=== PATIENT | male | born 1965 | race Caucasian/White ===

== ENCOUNTER 2016-04-10 20:53 | Emergency (ER) | payer BC ==
[~2016-04-10] VITALS: Ht 167.6 cm; Wt 64.0 kg
[~2016-04-10 20:53] MED LIST: ALPR1 PO; LORTA10 PO; XANA2TAB2 PO
[2016-04-10 20:56] VITALS: BP 149/88; PULSE 83; RESP 18; TEMP 97.8; O2SAT 99
[2016-04-10 21:06] VITALS: BP 168/89; PULSE 91; RESP 20; O2SAT 94
[2016-04-10] MEDS ORDERED: LORazepam 2 MG/ML VIAL ONE (21:06)
[2016-04-10] MEDS ORDERED: DIAZ10 PO (21:15)
[2016-04-10] MEDS ORDERED: FENT75DI T-DERMAL (21:15)
[2016-04-10] MEDS ORDERED: SODIUM CHLOR 0.9% 1000 ML INJ 1,000 ML IV ONE (21:15)
[2016-04-10] MEDS ORDERED: HYDR-3535 PO (21:15)
--- NOTE | 2016-04-10 21:27 | PD ---
HPI Chief Complaint: Chronic pain Time Seen by Provider: 21:11 Travel History International Travel<30 days: No Contact w/Intl Traveler<30days: No Traveled to known affect area: No History of Present Illness HPI 50yo M with PMH of chronic back pain presents to the ED with c/o not able to get his pain medication. Pt takes fentanyl patch, lortab and valium for his chronic back pain. Pt gets the medications from his pain management physician Dr. Maher and states they went to him today and received a prescription refill of all his pain medications. Pt states he accidentally threw away all his pain medications 3 days ago and [facility] would not fill them. Pt is shaking his right arm but easily arousable and has no post ictal state. Pt becomes alert when we discuss his pain medications between his episodes of shaking extremities and answers questions. Denies any fever, chest pain, sob, n/v, abdominal pain, weakness or numbness. Pt was on the bed when this happened and denies any fall or trauma. PFSH Past Medical History Arthritis: Yes Autoimmune Disease: No Blood Disorders: No Anxiety: Yes Depression: Yes Cardiovascular Problems: No Endocrine: No GERD: Yes Genitourinary: No Immune Disorder: No Musculoskeletal: Yes (CHRONIC BACK PAIN) Neurologic: No Psychiatric: Yes Respiratory: No Immunizations Current: Yes Tetanus Vaccination: Unknown Influenza Vaccination: No Past Surgical History Appendectomy: Yes Body Medical Devices: BACK SURGERIES WITH CAGE Other Surgery: Yes (BACK SURGERY 1997, APPENDIX 1983) Social History Alcohol Use: Yes Tobacco Use: Yes Substance Use: No Allergies-Medications (Allergen,Severity, Reaction): Coded Allergies: No Known Allergies (Verified , 04/10/16) Reported Meds & Prescriptions Reported Meds & Active Scripts Active Reported Fentanyl Patch 72 HR (Fentanyl) 75 Mcg/Hr Patch 75 Mcg T-DERMAL Q72H Remove old patch when new one placed. Valium (Diazepam) 10 Mg Tab 10 Mg PO TID PRN Lortab (Hydrocodone-Acetaminophen) 10-325 Mg Tab 1 Tab PO Q4H PRN Review of Systems Except as stated in HPI: all other systems reviewed are Neg Physical Exam Narrative GENERAL: 50yo M not in distress. SKIN: Warm and dry. HEAD: Atraumatic. Normocephalic. EYES: Pupils equal and round. No scleral icterus. No injection or drainage. ENT: No nasal bleeding or discharge. Mucous membranes pink and moist. NECK: Trachea midline. No JVD. CARDIOVASCULAR: Regular rate and rhythm. No murmur appreciated. RESPIRATORY: No accessory muscle use. Clear to auscultation. Breath sounds equal bilaterally. GASTROINTESTINAL: Abdomen soft, non-tender, nondistended. No rebound tenderness or guarding. MUSCULOSKELETAL: No obvious deformities. No clubbing. No cyanosis. No edema. NEUROLOGICAL: Awake and alert. No obvious cranial nerve deficits. Motor grossly within normal limits. Normal speech. PSYCHIATRIC: Appropriate mood and affect; insight and judgment normal. Data Data Last Documented VS Vital Signs Date Time Temp Pulse Resp B/P Pulse Ox O2 Delivery O2 Flow Rate FiO2 04/10/16 21:08 91 20 98 Room Air 04/10/16 21:06 168/89 04/10/16 20:56 97.8 Orders Lorazepam Inj (Ativan Inj) (04/10/16 21:06) Complete Blood Count With Diff (04/10/16 21:14) Basic Metabolic Panel (Bmp) (04/10/16 21:14) Lactic Acid (04/10/16 21:14) Sodium Chlor 0.9% 1000 Ml Inj (Ns 1000 M (04/10/16 21:15) Lactic Acid (04/10/16 22:20) Potassium Chloride (Kcl) (04/10/16 22:30) Potassium Chlor 10 Meq Premix (Kcl 10 Me (04/10/16 22:30) Magnesium (Mg) (04/10/16 21:25) Electrocardiogram (04/10/16 ) Labs Laboratory Tests Test 04/10/16 04/10/16 21:25 23:20 White Blood Count 8.1 TH/MM3 Red Blood Count 4.19 MIL/MM3 Hemoglobin 14.6 GM/DL Hematocrit 42.1 % Mean Corpuscular Volume 100.4 FL Mean Corpuscular Hemoglobin 34.7 PG Mean Corpuscular Hemoglobin 34.6 % Concent Red Cell Distribution Width 13.7 % Platelet Count 263 TH/MM3 Mean Platelet Volume 8.3 FL Neutrophils (%) (Auto) 68.9 % Lymphocytes (%) (Auto) 23.8 % Monocytes (%) (Auto) 5.7 % Eosinophils (%) (Auto) 0.7 % Basophils (%) (Auto) 0.9 % Neutrophils # (Auto) 5.6 TH/MM3 Lymphocytes # (Auto) 1.9 TH/MM3 Monocytes # (Auto) 0.5 TH/MM3 Eosinophils # (Auto) 0.1 TH/MM3 Basophils # (Auto) 0.1 TH/MM3 CBC Comment AUTO DIFF Differential Comment AUTO DIFF CONFIRMED Platelet Estimate NORMAL Platelet Morphology Comment NORMAL Red Cell Morphology Comment NORMAL Lactic Acid Level 3.7 mmol/L 2.8 mmol/L Sodium Level 142 MEQ/L Potassium Level 2.9 MEQ/L Chloride Level 108 MEQ/L Carbon Dioxide Level 22.0 MEQ/L Anion Gap 12 MEQ/L Blood Urea Nitrogen 6 MG/DL Creatinine 0.66 MG/DL Estimat Glomerular Filtration 127 ML/MIN Rate Random Glucose 123 MG/DL Calcium Level 8.4 MG/DL Magnesium Level 2.5 MG/DL [facility] Medical Decision Making Medical Screen Exam Complete: Yes Emergency Medical Condition: Yes Interpretation(s) EKG: NSR 78bpm. Normal axis. Poor baseline. Differential Diagnosis pseudoseizure vs. malingering vs. electrolyte abnormalities Narrative Course 50yo M with chronic back pain on multiple pain medication. Pt states that he accidentally threw away his pain medications and pharmacy wont fill his new prescriptions. Pt has shaking episodes that resolved when we discuss his medications and there is not a post ictal state. During the shaking episode of his right arm, his VS remain normal and he was aware of what was going on. Also lifted right arm over his face and it did not drop on his face but whether to his side. Labs reviewed, no leukocytosis. Hypokalemia at 2.9. Magnesium normal at 2.5. Pt given 60mEq KCl and 10mEq KCl IV. Lactic acid is mildly elevated at 3.7, repeat is down to 2.8. Given pt's clinical presentation, I do not feel that he had an actual seizure. Pt was aware of what was happening the entire time. Pt has not had any more episode of shaking after his initial presentation and now wants to go home. He states he will call his pain management physician to see if they can talk to his pharmacy to give him pain medication earlier. is with him. Diagnosis Primary Impression: Hypokalemia Patient Instructions: General Instructions Departure Forms: Tests/Procedures Additional Instructions: Please follow up with your pain management physician regarding your medication refill. Please follow up with your PMD in 1-2 days. Return to the ED if symptoms worsen. Med/Other Pt SpecificInfo: No Change to Meds Disposition: 01 DISCHARGE HOME Condition: Stable Vesna Leonard DO Apr 10, 2016 21:26
[2016-04-10 21:45] LABS: AUTOMATED NEUTROPHIL # 5.6 TH/MM3 (1.8-7.7); BASOPHIL # 0.1 TH/MM3 (0-0.2); BASOPHIL % 0.9 % (0.0-2.0); EOSINOPHIL # 0.1 TH/MM3 (0-0.4); EOSINOPHIL % 0.7 % (0.0-4.0); HEMATOCRIT 42.1 % (39.0-51.0); LYMPH % 23.8 % (9.0-44.0); LYMPHOCYTE # 1.9 TH/MM3 (1.0-4.8); MEAN CELL VOLUME 100.4 FL (80.0-100.0); MEAN CORPUSCULAR HEMOGLOBIN 34.7 PG (27.0-34.0); MEAN CORPUSCULAR HGB CONC 34.6 % (32.0-36.0); MONO % 5.7 % (0.0-8.0); NEUT % 68.9 % (16.0-70.0); PLATELET COUNT 263 TH/MM3 (150-450); RED BLOOD COUNT 4.19 MIL/MM3 (4.50-5.90); RED CELL DISTRIBUTION WIDTH 13.7 % (11.6-17.2); WHITE BLOOD COUNT 8.1 TH/MM3 (4.0-11.0)
[2016-04-10 21:48] LABS: HEMO FLAGS AUTO DIFF
[2016-04-10 22:20] LABS: PLATELET ESTIMATE SMEAR NORMAL (NORMAL); PLATELET MORPHOLOGY NORMAL (NORMAL); POTASSIUM 2.9 MEQ/L (3.5-5.1); SCAN/DIFF AUTO DIFF CONFIRMED
[2016-04-10] MEDS ORDERED: POTASSIUM CHLOR 10 MEQ PREMIX 100 ML IV ONE (22:30)
[2016-04-10] MEDS ORDERED: POTASSIUM CHLORIDE 20 MEQ CONTROLLED RELEASE TAB PO ONE (22:30)
[2016-04-11 00:14] LABS: MAGNESIUM 2.5 MG/DL (1.5-2.5)
--- NOTE | 2016-04-11 22:57 | EKG ---
Date Performed: 04/10/2016 Time Performed: 21:10:28 PTAGE: 50 years EKG: Sinus rhythm MODERATE ST DEPRESSION ABNORMAL ECG NO PREVIOUS TRACING DOCTOR: Shell Reyes Interpretating Date/Time 04/11/2016 22:54:26
== END 2016-04-11 03:00 | disposition home or self-care (01) ==
LOC: NEPA 20:53
DX: E87.6 Hypokalemia (principal); K21.9 Gastro-esophageal reflux disease without esophagitis; M54.9 Dorsalgia, unspecified; G89.29 Other chronic pain; R94.31 Abnormal electrocardiogram [ECG] [EKG]; Z72.0 Tobacco use
CPT/HCPCS: 80048; 83605; 83735; 85025; 93005; 96361; 96365; 99283; J2060; J3480; J7030

== ENCOUNTER 2017-02-06 23:16 | Emergency (ER) | payer BC, OTHER ==
[~2017-02-06] VITALS: Ht 182.9 cm; Wt 65.0 kg
[~2017-02-06 23:16] MED LIST changes: -ALPR1 PO; +DIAZ10 PO; +FENT75DI T-DERMAL; +HYDR-3535 PO; -LORTA10 PO; -XANA2TAB2 PO
[2017-02-06 23:29] VITALS: BP 163/85; PULSE 60; RESP 18; TEMP 98.8; O2SAT 100
[2017-02-06] MEDS ORDERED: HYDR-3366 PO (23:38)
[2017-02-06 23:57] LABS: AUTOMATED NEUTROPHIL # 3.5 TH/MM3 (1.8-7.7); BASOPHIL % 0.4 % (0.0-2.0); EOSINOPHIL # 0.1 TH/MM3 (0-0.4); EOSINOPHIL % 1.1 % (0.0-4.0); HEMATOCRIT 36.1 % (39.0-51.0); HEMO FLAGS DIFF FINAL; LYMPH % 34.2 % (9.0-44.0); LYMPHOCYTE # 2.1 TH/MM3 (1.0-4.8); MEAN CELL VOLUME 100.6 FL (80.0-100.0); MEAN CORPUSCULAR HEMOGLOBIN 34.5 PG (27.0-34.0); MEAN CORPUSCULAR HGB CONC 34.3 % (32.0-36.0); NEUT % 57.3 % (16.0-70.0); PLATELET COUNT 180 TH/MM3 (150-450); RED BLOOD COUNT 3.59 MIL/MM3 (4.50-5.90); WHITE BLOOD COUNT 6.1 TH/MM3 (4.0-11.0)
[2017-02-07 00:16] LABS: ACETAMINOPHEN 4.1 MCG/ML (10.0-30.0); CALCIUM-PROTEIN CORRECTED 7.6 MG/DL (8.5-10.1); POTASSIUM 3.2 MEQ/L (3.5-5.1); TOTAL BILIRUBIN ADULT 0.2 MG/DL (0.2-1.0)
--- NOTE | 2017-02-07 01:14 | PD ---
HPI Chief Complaint: OD/ Ingestion Time Seen by Provider: 23:24 Travel History International Travel<30 days: No Contact w/Intl Traveler<30days: No Traveled to known affect area: No History of Present Illness HPI Patient is a 51-year-old male presents emergency Department on Silva act, the patient states she has a history of chronic back pain and had run out of his pain medicines so he took a handful of sleeping pills tonight to help him sleep. Apparently to benzodiazepines. The patient states that his found out about this and called 911 and police Shira acted and transferred to the hospital. His only complaint now is of low back pain which he states is chronic. He states he usually takes Percocet and has been out of them and went to the pharmacy for refill but was told by the pharmacist stated was too early. Patient denies any other ingestions. According to the Silva act the patient made several suicidal threats to as well as police. He does not endorse list. Denies any chest pain shortness of breath abdominal pain nausea vomiting diarrhea. Denies any history of suicidal attempts or depression. PFSH Past Medical History Arthritis: Yes Autoimmune Disease: No Blood Disorders: No Anxiety: Yes Depression: Yes Cardiovascular Problems: No Endocrine: No GERD: Yes Genitourinary: No Immune Disorder: No Musculoskeletal: Yes (CHRONIC BACK PAIN) Neurologic: No Psychiatric: Yes Respiratory: No Immunizations Current: Yes Tetanus Vaccination: < 5 Years Influenza Vaccination: Yes Past Surgical History Appendectomy: Yes Body Medical Devices: BACK SURGERIES WITH CAGE Other Surgery: Yes (BACK SURGERY 1997, APPENDIX 1983) Social History Alcohol Use: Yes Tobacco Use: Yes Substance Use: No Allergies-Medications (Allergen,Severity, Reaction): Coded Allergies: No Known Allergies (Verified Allergy, Unknown, 02/07/17) Reported Meds & Prescriptions Reported Meds & Active Scripts Active Reported [place] (Hydrocodone-Acetaminophen) 10-325 Mg Tab 1 Tab PO Q6H PRN Fentanyl Patch 72 HR (Fentanyl) 75 Mcg/Hr Patch 75 Mcg T-DERMAL Q72H Remove old patch when new one placed. Valium (Diazepam) 10 Mg Tab 10 Mg PO TID PRN Review of Systems Except as stated in HPI: all other systems reviewed are Neg Physical Exam Narrative GENERAL: Well-developed well-nourished no obvious distress SKIN: Focused skin assessment warm/dry. HEAD: Atraumatic. Normocephalic. EYES: Pupils equal and round. No scleral icterus. No injection or drainage. ENT: No nasal bleeding or discharge. Mucous membranes pink and moist. NECK: Trachea midline. No JVD. CARDIOVASCULAR: Regular rate and rhythm. No murmur appreciated. RESPIRATORY: No accessory muscle use. Clear to auscultation. Breath sounds equal bilaterally. GASTROINTESTINAL: Abdomen soft, non-tender, nondistended. Hepatic and splenic margins not palpable. MUSCULOSKELETAL: No obvious deformities. No clubbing. No cyanosis. No edema. No midline CT or L-spine tenderness, full nontender range of motion all extremities. NEUROLOGICAL: Awake and alert. No obvious cranial nerve deficits. Motor grossly within normal limits. Normal speech. PSYCHIATRIC: Appropriate mood and affect; insight normal and poor judgment. Denies suicidal or homicidal ideation. Data Data Last Documented VS Vital Signs Date Time Temp Pulse Resp B/P (MAP) Pulse Ox O2 Delivery O2 Flow Rate FiO2 02/07/17 02:51 65 16 136/61 (86) 98 Room Air 02/06/17 23:29 98.8 Orders Orders Complete Blood Count With Diff (02/06/17 23:24) Comprehensive Metabolic Panel (02/06/17 23:24) Psych Screen (02/06/17 23:24) Drug Screen, Random Urine (02/06/17 23:24) Alcohol (Ethanol) (02/06/17 23:24) Salicylates (Aspirin) (02/06/17 23:24) Tylenol (Acetaminophen) (02/06/17 23:24) Oxycodone (Roxicodone) (02/07/17 01:15) Electrocardiogram (02/07/17 ) Tylenol (Acetaminophen) (02/07/17 02:48) Tylenol (Acetaminophen) (02/07/17 04:00) Diet Regular Basic (02/07/17 Breakfast) Labs Laboratory Tests Test 02/06/17 23:40 02/07/17 03:45 White Blood Count 6.1 TH/MM3 Red Blood Count 3.59 MIL/MM3 Hemoglobin 12.4 GM/DL Hematocrit 36.1 % Mean Corpuscular Volume 100.6 FL Mean Corpuscular Hemoglobin 34.5 PG Mean Corpuscular Hemoglobin Concent 34.3 % Red Cell Distribution Width 13.0 % Platelet Count 180 TH/MM3 Mean Platelet Volume 8.5 FL Neutrophils (%) (Auto) 57.3 % Lymphocytes (%) (Auto) 34.2 % Monocytes (%) (Auto) 7.0 % Eosinophils (%) (Auto) 1.1 % Basophils (%) (Auto) 0.4 % Neutrophils # (Auto) 3.5 TH/MM3 Lymphocytes # (Auto) 2.1 TH/MM3 Monocytes # (Auto) 0.4 TH/MM3 Eosinophils # (Auto) 0.1 TH/MM3 Basophils # (Auto) 0.0 TH/MM3 CBC Comment DIFF FINAL Differential Comment Blood Urea Nitrogen 7 MG/DL Creatinine 0.40 MG/DL Random Glucose 75 MG/DL Total Protein 4.9 GM/DL Albumin 2.1 GM/DL Calcium Level 6.5 MG/DL Alkaline Phosphatase 76 U/L Aspartate Amino Transf (AST/SGOT) 26 U/L Alanine Aminotransferase (ALT/SGPT) 22 U/L Total Bilirubin 0.2 MG/DL Sodium Level 148 MEQ/L Potassium Level 3.2 MEQ/L Chloride Level 119 MEQ/L Carbon Dioxide Level 23.0 MEQ/L Anion Gap 6 MEQ/L Estimat Glomerular Filtration Rate 226 ML/MIN Protein Corrected Calcium 7.6 MG/DL Salicylates Level 3.1 MG/DL Acetaminophen Level 4.1 MCG/ML 2.4 MCG/ML Ethyl Alcohol Level 35 MG/DL MDM Medical Decision Making Medical Screen Exam Complete: Yes Emergency Medical Condition: Yes Differential Diagnosis Benzodiazepine ingestion, Tylenol ingestion, poor social circumstance, suicide attempt, chronic back pain. Narrative Course Patient 51-year-old male roomed emergency department, complains of chronic back pain. Under Sliva act. Tylenol level nontoxic 2. Hemodynamically stable, protecting airway, basic labs reassuring. Patient is medically for psychiatric evaluation and disposition. Observed in the emergency department for several hours and shows no mental status depression. Diagnosis Primary Impression: Benzodiazepine overdose Qualified Codes: T42.4X2A - Poisoning by benzodiazepines, intentional self- harm, initial encounter Condition: Stable Wero Gilbert MD Feb 07, 2017 01:14
[2017-02-07 01:17] VITALS: BP 151/91; PULSE 66; RESP 18; O2SAT 99
[2017-02-07 02:51] VITALS: BP 136/61; PULSE 65; RESP 16; O2SAT 98
[2017-02-07 04:49] VITALS: BP 163/78; PULSE 67; RESP 18; O2SAT 100
[2017-02-07 06:45] VITALS: BP 141/68; PULSE 55; RESP 15; TEMP 96.5; O2SAT 100
[2017-02-07 10:00] VITALS: BP 164/82; PULSE 74; RESP 18
[2017-02-07 14:00] VITALS: BP 164/82; PULSE 74; RESP 18
--- NOTE | 2017-02-07 14:10 | PD ---
History of Present Illness Chief Complaint: OD/ Ingestion Time Seen by Provider: 13:45 Travel History International Travel<30 Days: No Contact w/Intl Traveler<30days: No Known affected area: No Legal Status Legal Status: Silva Act Silva Act Signed By: Martin Preston Silva Act Comment: 02/06/2017 1100 PM [facility]. GREEN #[id number] History of Present Illness: History of Present Illness HPI Patient is a 51-year-old male with a self-reported history of anxiety disorder who presents to the emergency Department on a Silva act initiated by law enforcement after his contacted the police. The reported that she suspected that he had taken extra pain medication. He initially reported that he had taken 15 act sure pills for control of his pain. However the patient later retracted this statement. He states that he went to the pharmacy to get an early refill on his pain medication and was denied the early refill. He admits that when he was at home he threw a glass causing his to become concerned over his well-being. Patient was monitored and controlled environment and presented no behavioral concerns and no suicidality. Electronic medical record is review with no previous contact with [facility] psychiatry. Current toxicology is positive for opiates and benzos which are prescribed. Positive for cannabinoids and blood alcohol level was 35. The patient is seen with SHEELA Huang. He is alert, oriented, engaging and cooperative. Speech is clear and logical. There is no objective clinical symptoms of depression or anxiety. There is no evidence of any psychosis, hypomania or becka. The patient is requesting to be discharge. He denies any suicidal or homicidal ideation intent or any plan of harming himself or anyone else. He denies that he took 15 extra pills. PFSH Past Medical History Arthritis: Yes Autoimmune Disease: No Blood Disorders: No Anxiety: Yes Depression: Yes Cardiovascular Problems: No Endocrine: No GERD: Yes Genitourinary: No Immune Disorder: No Musculoskeletal: Yes (CHRONIC BACK PAIN) Neurologic: No Psychiatric: Yes Respiratory: No Immunizations Current: Yes Tetanus Vaccination: < 5 Years Influenza Vaccination: Yes Past Surgical History Appendectomy: Yes Body Medical Devices: BACK SURGERIES WITH CAGE Other Surgery: Yes (BACK SURGERY 1997, APPENDIX 1983) Psychiatric History Psychiatric History Hx Psychiatric Treatment: Patient denies any recent inpatient psychiatric admissions. He states he was last placed under a Silva Act when he was 18 yrs old and his daughter . He denies any outpatient psychiatric treatment. History of Inpatient Treatment: Yes Guns or firearms in home: No Social History 34 years. Lives with his and an adult son. Patient is on disability due to back problems. Hx Alcohol Use: Yes Hx Tobacco Use: Yes Hx Substance Use: No Substance Use Type: Alcohol, Marijuana, Nicotine/Cigarettes Other Substances Used: occ. beer, 1 ppd Hx of Substance Use Treatment: No Family Psychiatric History Negative Allergies-Medications (Allergen,Severity, Reaction): Coded Allergies: No Known Allergies (Verified Allergy, Unknown, 02/07/17) Reported Meds & Prescriptions Reported Meds & Active Scripts Active Reported [place] (Hydrocodone-Acetaminophen) 10-325 Mg Tab 1 Tab PO Q6H PRN Fentanyl Patch 72 HR (Fentanyl) 75 Mcg/Hr Patch 75 Mcg T-DERMAL Q72H Remove old patch when new one placed. Valium (Diazepam) 10 Mg Tab 10 Mg PO TID PRN Review of Systems Musculoskeletal: COMPLAINS OF: Back pain Psychiatric: COMPLAINS OF: Anxiety Except as stated in HPI: all other systems reviewed are Neg Mental Status Examination Appearance: Appropriate (in hospital attire) Consciousness: Alert Orientation: x4 Motor Activity: Normal gait Speech: Unremarkable Language: Adequate Fund of Knowledge: Adequate Attention and Concentration: Adequate Memory: Unremarkable Mood: Appropriate Affect: Appropriate Thought Process & Associations: Intact Thought Content: Appropriate Hallucination Type: None Delusion Type: None Suicidal Ideation: No Suicidal Plan: No Suicidal Intention: No Homicidal Ideation: No Homicidal Plan: No Homicidal Intention: No Insight: Adequate Judgment: Impulsive MDM Medical Decision Making Medical Record Reviewed: Yes Assessment/Plan 51-year-old male no previous psychiatric history who presents to the emergency department under a Silva act. The patient's contacted the police after she suspected that he had taken extra pain medication as she found some empty bottles. The patient denies that he took any extra medication although it is suspected that he has been taking extra on a day to day basis. The patient denies that he took any extra medication in order to harm himself. He states that he went to the pharmacy to get an early refill and was not provided such. He admits to getting frustrated and to having thrown a glass against the wall. After monitoring here in [facility] the patient does not present any evidence of any unstable mental illness. He denies any suicidal or homicidal ideation, intent or plan. The patient is requesting to be discharge and I find no reason to keep him under the Silva act. The patient is provided psychoeducation. The Silva act is lifted. Psychiatrically clear for discharge Orders Orders Complete Blood Count With Diff (02/06/17 23:24) Comprehensive Metabolic Panel (02/06/17 23:24) Psych Screen (02/06/17 23:24) Drug Screen, Random Urine (02/06/17 23:24) Alcohol (Ethanol) (02/06/17 23:24) Salicylates (Aspirin) (02/06/17 23:24) Tylenol (Acetaminophen) (02/06/17 23:24) Oxycodone (Roxicodone) (02/07/17 01:15) Electrocardiogram (02/07/17 ) Tylenol (Acetaminophen) (02/07/17 02:48) Diet Regular Basic (02/07/17 Breakfast) Oxycodone (Roxicodone) (02/07/17 13:00) Diet Regular Basic (02/07/17 Lunch) Results Vital Signs Date Time Temp Pulse Resp B/P (MAP) Pulse Ox O2 Delivery O2 Flow Rate FiO2 02/07/17 10:00 74 18 164/82 (109) Room Air 02/07/17 06:45 96.5 55 15 141/68 (92) 100 Room Air 02/07/17 04:49 67 18 163/78 (106) 100 02/07/17 02:51 65 16 136/61 (86) 98 Room Air 02/07/17 01:17 66 18 151/91 (111) 99 Room Air 02/06/17 23:29 98.8 60 18 163/85 (111) 100 Laboratory Tests Test 02/06/17 23:40 02/07/17 03:45 02/07/17 05:23 White Blood Count 6.1 Red Blood Count 3.59 Hemoglobin 12.4 Hematocrit 36.1 Mean Corpuscular Volume 100.6 Mean Corpuscular Hemoglobin 34.5 Mean Corpuscular Hemoglobin Concent 34.3 Red Cell Distribution Width 13.0 Platelet Count 180 Mean Platelet Volume 8.5 Neutrophils (%) (Auto) 57.3 Lymphocytes (%) (Auto) 34.2 Monocytes (%) (Auto) 7.0 Eosinophils (%) (Auto) 1.1 Basophils (%) (Auto) 0.4 Neutrophils # (Auto) 3.5 Lymphocytes # (Auto) 2.1 Monocytes # (Auto) 0.4 Eosinophils # (Auto) 0.1 Basophils # (Auto) 0.0 CBC Comment DIFF FINAL Differential Comment Blood Urea Nitrogen 7 Creatinine 0.40 Random Glucose 75 Total Protein 4.9 Albumin 2.1 Calcium Level 6.5 Alkaline Phosphatase 76 Aspartate Amino Transf (AST/SGOT) 26 Alanine Aminotransferase (ALT/SGPT) 22 Total Bilirubin 0.2 Sodium Level 148 Potassium Level 3.2 Chloride Level 119 Carbon Dioxide Level 23.0 Anion Gap 6 Estimat Glomerular Filtration Rate 226 Protein Corrected Calcium 7.6 Salicylates Level 3.1 Acetaminophen Level 4.1 2.4 Ethyl Alcohol Level 35 Urine Opiates Screen POS Urine Barbiturates Screen NEG Urine Amphetamines Screen NEG Urine Benzodiazepines Screen POS Urine Cocaine Screen NEG Urine Cannabinoids Screen POS Diagnosis Primary Impression: Benzodiazepine overdose Additional Impression: Adjustment disorder Psychiatrically Cleared: Yes Med/ Other Pt Specific Info: No Meds Exist/No RX given Disposition: 01 DISCHARGE HOME Condition: Stable Problem Qualifiers Primary Impression: Benzodiazepine overdose Qualified Codes: T42.4X2A - Poisoning by benzodiazepines, intentional self- harm, initial encounter Additional Impression: Adjustment disorder Qualified Codes: F43.25 - Adjustment disorder with mixed disturbance of emotions and conduct Simona Casarez Feb 07, 2017 14:10
--- NOTE | 2017-02-07 15:09 | PD ---
Physical Exam Date Seen by Provider: Feb 07, 2017 Narrative 51-year-old male presents to emergency department with suicidal ideations. Patient was evaluated and medically cleared to see psych. At this time psych has lifted his Silva act and patient is ready to go home. Patient denies suicidal or homicidal ideations. Advised follow up with Greg Porter. Patient is discharged Data Data Last Documented VS Vital Signs Date Time Temp Pulse Resp B/P (MAP) Pulse Ox O2 Delivery O2 Flow Rate FiO2 02/07/17 14:10 02/07/17 14:00 74 18 Room Air 02/07/17 06:45 96.5 100 Orders Orders Complete Blood Count With Diff (02/06/17 23:24) Comprehensive Metabolic Panel (02/06/17 23:24) Psych Screen (02/06/17 23:24) Drug Screen, Random Urine (02/06/17 23:24) Alcohol (Ethanol) (02/06/17 23:24) Salicylates (Aspirin) (02/06/17 23:24) Tylenol (Acetaminophen) (02/06/17 23:24) Oxycodone (Roxicodone) (02/07/17 01:15) Electrocardiogram (02/07/17 ) Tylenol (Acetaminophen) (02/07/17 02:48) Diet Regular Basic (02/07/17 Breakfast) Oxycodone (Roxicodone) (02/07/17 13:00) Diet Regular Basic (02/07/17 Lunch) Ed Discharge Order (02/07/17 15:09) Labs Laboratory Tests Test 02/06/17 23:40 02/07/17 03:45 02/07/17 05:23 White Blood Count 6.1 TH/MM3 Red Blood Count 3.59 MIL/MM3 Hemoglobin 12.4 GM/DL Hematocrit 36.1 % Mean Corpuscular Volume 100.6 FL Mean Corpuscular Hemoglobin 34.5 PG Mean Corpuscular Hemoglobin Concent 34.3 % Red Cell Distribution Width 13.0 % Platelet Count 180 TH/MM3 Mean Platelet Volume 8.5 FL Neutrophils (%) (Auto) 57.3 % Lymphocytes (%) (Auto) 34.2 % Monocytes (%) (Auto) 7.0 % Eosinophils (%) (Auto) 1.1 % Basophils (%) (Auto) 0.4 % Neutrophils # (Auto) 3.5 TH/MM3 Lymphocytes # (Auto) 2.1 TH/MM3 Monocytes # (Auto) 0.4 TH/MM3 Eosinophils # (Auto) 0.1 TH/MM3 Basophils # (Auto) 0.0 TH/MM3 CBC Comment DIFF FINAL Differential Comment Blood Urea Nitrogen 7 MG/DL Creatinine 0.40 MG/DL Random Glucose 75 MG/DL Total Protein 4.9 GM/DL Albumin 2.1 GM/DL Calcium Level 6.5 MG/DL Alkaline Phosphatase 76 U/L Aspartate Amino Transf (AST/SGOT) 26 U/L Alanine Aminotransferase (ALT/SGPT) 22 U/L Total Bilirubin 0.2 MG/DL Sodium Level 148 MEQ/L Potassium Level 3.2 MEQ/L Chloride Level 119 MEQ/L Carbon Dioxide Level 23.0 MEQ/L Anion Gap 6 MEQ/L Estimat Glomerular Filtration Rate 226 ML/MIN Protein Corrected Calcium 7.6 MG/DL Salicylates Level 3.1 MG/DL Acetaminophen Level 4.1 MCG/ML 2.4 MCG/ML Ethyl Alcohol Level 35 MG/DL Urine Opiates Screen POS Urine Barbiturates Screen NEG Urine Amphetamines Screen NEG Urine Benzodiazepines Screen POS Urine Cocaine Screen NEG Urine Cannabinoids Screen POS MDM Supervised Visit with FRANK: Yes Diagnosis Primary Impression: Benzodiazepine overdose Additional Impression: Adjustment disorder Patient Instructions: General Instructions, Mood Disorders (ED), Medical Clearance for Psychiatric Care (ED) Departure Forms: Tests/Procedures Additional Instruction: DX: Adjustment Disorder Please return to ED if symptoms worsen. Disposition: 01 DISCHARGE HOME Condition: Stable Leta Guerra Feb 07, 2017 15:09
--- NOTE | 2017-02-07 16:07 | EKG ---
Date Performed: 02/07/2017 Time Performed: 01:58:17 PTAGE: 51 years EKG: Sinus rhythm NORMAL ECG PREVIOUS TRACING 02/07/17 Since the prior tracing, the nonspecific ST segment changes have res olved. DOCTOR: Zulma Kaba Interpretating Date/Time 02/07/2017 16:05:39
== END 2017-02-07 15:12 | disposition home or self-care (01) ==
LOC: NEPE 23:16 → EDBD 23:16 → NEPJ 02-07 15:12
DX: T42.4X2A Poisoning by benzodiazepines, intentional self-harm, initial encounter (principal); F43.25 Adjustment disorder with mixed disturbance of emotions and conduct; M19.90 Unspecified osteoarthritis, unspecified site; F41.9 Anxiety disorder, unspecified; K21.9 Gastro-esophageal reflux disease without esophagitis; Z79.899 Other long term (current) drug therapy; Z72.0 Tobacco use
CPT/HCPCS: 80053; 80307; 85025; 93005; 99284